=== PATIENT | female | born 1985 | race Caucasian/White ===

== ENCOUNTER 2020-01-19 00:44 | Outpatient (CLI) | payer OTHER, SELFPAY ==
[2020-01-19 16:40] LABS: SARS-CoV-2 RNA PCR Negative
== END 2020-01-19 00:45 | disposition home or self-care (01) ==
LOC: ANHCOVIDDT 00:44
PROVIDERS: PCP Internal Medicine; Visit Provider Obstetrics & Gynecology
DX: Z01.812 Encounter for preprocedural laboratory examination (principal); Z20.828 Contact with and (suspected) exposure to other viral communicable diseases
CPT/HCPCS: 87635; C9803; U0003

== ENCOUNTER 2020-01-21 02:06 | Day surgery (SDC) | payer OTHER, SELFPAY ==
[2020-01-13 10:26] VITALS: BMI 29.2
--- NOTE | 2020-01-21 08:20 | P.PNAN_ITS ---
Anes - Initial Pre Proc Eval Procedure: Operation Date: 01/21/20 11:30 Proposed Procedures p Hysteroscopy, Removal Of Foreign Body, Possible Insertion Intra Uterine Device - Chas Mike MD Date/Time: 01/21/20 08:20 Surgeon: Chas Mike MD Pre Op Diagnosis: Malposition of IUD Patient Data Age: 34 Gender: F Height: 5 ft Weight: 68.04 kg Allergies Allergy/AdvReac Type Severity Reaction Status Date / Time No Known Allergies Allergy Verified 01/21/20 10:01 Home Medications Medication Instructions Recorded Confirmed Type L.acid-L.casei-B.bif-B.bruce-FOS 1 cap PO DAILY 01/13/20 01/21/20 History [Probiotic Blend] krill ikd-tyifuvtukx-pgkplogfq 1 cap PO DAILY 01/13/20 01/21/20 History [MegaRed Joint Care] multivit del-bxgt-XP-herb 186 1 tablet PO DAILY 01/13/20 01/21/20 History [Hair, Skin and Nails Advanced] turmeric 1 cap PO DAILY 01/13/20 01/21/20 History Patient hx anesthesia problems: none Family hx anesthesia problems: none [facility], [facility] Past Medical History Medical History (Updated 01/21/20 @ 10:24 by Chas Mike MD) Anxiety GERD (gastroesophageal reflux disease) Migraine Social History Social History Smoking status: Former smoker Tobacco type: cigarettes Additional smoking assessment comments: SMOKING AT SOCIAL GATHERINGS ONLY- STATES SMOKED ONLY 2 YRS. QUIT 2 YEARS AG Alcohol intake: current Drinks per week: 6 Spiritual care concerns: No Anes - Eval Final PreProcedure Day of Procedure 01/21/20 08:20 Patient weight: normal Heart: regular rate and rhythm Lungs: clear to auscultation Airway: Mallampati scale class II Neurological: alert and oriented Last oral intake: >/= 8 hours ASA classification: II Emergent: no Anesthetic plan: proceed Anesthesia type and monitoring: general GIVS and standard monitoring Informed Consent: The patient's anesthetic plan and its attendant risks and benefits were discussed with the patient/family/POA. Questions were solicited and answers provided to the satisfaction of the patient/family/POA.
[2020-01-21 09:34] VITALS: BP 117/68; PULSE 71; RESP 12; TEMP 36.8; O2SAT 100
[2020-01-21] MEDS: ACETAMINOPHEN 500 MG TABLET 1000 MG PO (09:39)
[2020-01-21] MEDS: LACTATED RINGERS 1,000 ML 30 ML IV CONT (10:03)
--- NOTE | 2020-01-21 10:13 | SUR.PREOP ---
1010 pt updated on delay to or and states will update family.
--- NOTE | 2020-01-21 10:23 | PM.IMHP ---
H&P: HPI History of Present Illness Date/Time: 01/21/20 10:23 Chief complaint: Malposition of IUD Narrative: Elvia Ortiz is a 34 year old female Who has a malpositioned and imbedded IUD. A hysteroscopic removal was attempted in the office but it failed. We are going to attempt removal under sedation. She understands the risks. She understands that injuries may occur that result in hospitalization, more surgery, and severe illness. She understands risk of hemorrhage and infection. Review of Systems Constitutional: Constitutional: Reports no additional constitutional complaints, Denies fatigue, Denies headache(s), Denies lethargy and Denies weakness Eyes: Eyes: Reports no additional eye complaints, Denies blurry vision and Denies photophobia ENT: Reports as per HPI, Denies headache(s) and Denies neck pain Cardiovascular: Cardiovascular: Denies chest pain, Denies diaphoresis, Denies leg edema, Denies palpitations and Denies dyspnea Respiratory: Respiratory: Denies hemoptysis, Denies dyspnea and Denies wheezing Gastrointestinal: Gastrointestinal: Denies abdominal pain, Denies melena, Denies bloating, Denies hematochezia, Denies nausea and Denies vomiting Genitourinary: Genitourinary: Reports no additional female genitourinary complaints Musculoskeletal: Musculoskeletal: Denies joint swelling, Denies neck pain, Denies numbness and Denies stiffness Neurologic: Denies Abnormal speech present, Denies confusion, Denies headache(s), Denies numbness and Denies weakness Psychiatric: Psychiatric: Denies anxiety, Denies confusion, Denies depression, Denies homicidal ideation and Denies suicidal ideation Endocrine: Endocrine: Denies fatigue and Denies palpitations Allergic/Immunologic: Allergic/Immunologic: Denies wheezing [facility] Past Medical History Medical History (Updated 01/21/20 @ 10:24 by Chas Mike MD) Anxiety GERD (gastroesophageal reflux disease) Migraine Social History Social History Smoking status: Former smoker Tobacco type: cigarettes Additional smoking assessment comments: SMOKING AT SOCIAL GATHERINGS ONLY-STATES SMOKED ONLY 2 YRS. QUIT 2 YEARS AG Alcohol intake: current Drinks per week: 6 Spiritual care concerns: No Meds Home Medications and Allergies Home Medications Medication Instructions Recorded Confirmed Type L.acid-L.casei-B.bif-B.bruec-FOS 1 cap PO DAILY 01/13/20 01/21/20 History [Probiotic Blend] krill kla-nhxfkkqtim-yuehsjmzh 1 cap PO DAILY 01/13/20 01/21/20 History [MegaRed Joint Care] multivit ofl-pqkm-YA-herb 186 1 tablet PO DAILY 01/13/20 01/21/20 History [Hair, Skin and Nails Advanced] turmeric 1 cap PO DAILY 01/13/20 01/21/20 History Allergies Allergy/AdvReac Type Severity Reaction Status Date / Time No Known Allergies Allergy Verified 01/21/20 10:01 Vital Signs Vital Signs - 24 hr 01/21/20 09:34 Temperature 98.3 F Pulse Rate 71 Respiratory Rate 12 Blood Pressure 117/68 Pulse Oximetry 100 Exam Const: General: healthy appearing, comfortable and no acute distress; No confusion Orientation/consciousness: No confusion Eyes: Direct Ophthalmoscopy: No photophobia Resp: Auscultation: clear to auscultation bilaterally, no rales, no rhonchi and no wheezes Cardio: Rate: regular rate Heart sounds: no click, no murmurs and no rubs GI: Inspection: non-distended GI Palp: No abdominal tenderness Auscultation: normal bowel sounds Neuro: General: No confusion Speech: No Abnormal speech present Extrem: General: normal to inspection, no pedal edema and no calf tenderness Assessment and Plan Assessment and plan (1) Malpositioned IUD: Code(s): T83.32XA - Displacement of intrauterine contraceptive device, initial encounter Status: Acute Assessment and Plan: this patient is a 34-year-old with a malpositioned IUD. We are going to proceed with hysteroscopic removal of IUD and IUD insertion. She understands risk
--- NOTE | 2020-01-21 10:25 | WPDHPUPDATE1 ---
History and Physical Update Update Date/Time: 01/21/20 10:25 History and Physical has been reviewed, including an updated exam of the patient. There are NO changes in the patient's condition. Risks, benefits, and alternatives have been discussed and questions answered. Patient agrees to proceed with procedure.
--- NOTE | 2020-01-21 12:30 | SUR.OPER ---
hysteroscopy irrigation 550ml in and 500ml out iona iud expires 02/25 lot: [id number]
[2020-01-21 12:40] VITALS: BP 113/65; PULSE 94; RESP 10; O2SAT 100
--- NOTE | 2020-01-21 12:47 | PM.PROC ---
Procedure Note - Detailed Date of procedure: 01/21/20 Pre-op diagnosis: Malposition of IUD Abnormal uterine bleeding Post-op diagnosis: same Procedure performed: Hysteroscopy , IUD removal, IUD insertion Description of procedure: The patient was taken the operating room. She was prepped and draped in the dorsal lithotomy position after induction of mac anesthesia. A speculum was placed in the vagina. The cervix grasped with a tenaculum. The cervix was injected at 3 and 9:00 a.m. with 1% lidocaine. Cervix was dilated up to 1 cm. The hysteroscope was inserted the intrauterine cavity and the above findings were noted. Mirena IUD was then inserted. The applicator was placed into the cavity. The IUD was discharged.. Hysteroscope was reinserted the intrauterine cavity to re-examine the endometrial surfaces. The IUD appeared normally placed. The hysteroscope was withdrawn. The tenaculum was removed. The speculum was removed. The patient tolerated the procedure well. She was taken recovery room stable condition. Sponge lap needle counts were correct x2. Anesthesia: MAC Surgeon: Chas Mike MD Estimated blood loss (mL): 20 Drains: No Packing: No Pathology: yes Complications: No immediate complications Condition: stable Disposition: PACU Findings: There was some thickening of the endometrium. There was normal appearing vulva, vagina and cervix.
[2020-01-21 13:02] VITALS: O2SAT 100
[2020-01-21 13:30] VITALS: BP 108/73; PULSE 69; RESP 14
== END 2020-01-21 14:25 | disposition home or self-care (01) ==
PROVIDERS: PCP Internal Medicine; Visit Provider Obstetrics & Gynecology
PROC: 0U5B8ZZ Destruction of Endometrium, Via Natural or Artificial Opening Endoscopic (ICD-10-PCS; CPT 58563; principal; 2020-01-21 11:30)
DX: T83.32XA Displacement of intrauterine contraceptive device, initial encounter (principal); Y76.8 Miscellaneous obstetric and gynecological devices associated with adverse incidents, not elsewhere classified
CPT/HCPCS: 58562; 58300; 87635; A9270; C9803; J2250; J2405; J2704; J3010; J7030; J7120; U0003

== ENCOUNTER 2021-12-30 16:05 | Outpatient (CLI) | payer OTHER, SELFPAY ==
[2021-12-30 16:28] LABS: Basophils Absolute Auto 0.07 K/mm3 (0.00-0.10); Basophils Percent Auto 0.8 % (0.0-1.0); Eosinophils Absolute Auto 0.16 K/mm3 (0.02-0.50); Eosinophils Percent Auto 1.9 % (1.0-6.0); Hematocrit 37.9 % (35.0-49.0); Immature Granulocyte Absolute 0.03 K/mm3 (0.00-0.00); Immature Granulocyte Percent A 0.4 % (0.0-0.0); Lymphocytes Absolute Auto 2.73 K/mm3 (1.10-4.50); Lymphocytes Percent Auto 33.1 % (18.0-42.0); Mean Corpuscular HGB Conc 34.3 g/dL (32.0-36.0); Mean Corpuscular Hemoglobin 33.6 pg (27.0-31.0); Mean Corpuscular Volume 97.9 fL (78.0-102.0); Mean Platelet Volume 10.5 fl (9.2-11.8); Monocytes Absolute Auto 0.56 K/mm3 (0.10-0.90); Monocytes Percent Auto 6.8 % (2.0-11.0); Neutrophils Absolute Auto 4.7 K/mm3 (1.7-7.2); Platelet Count Result 329 K/mm3 (150-420); Red Blood Count 3.87 M/mm3 (4.20-5.40); Red Cell Distribution Width 11.7 % (11.6-14.4); White Blood Count 8.3 K/mm3 (4.8-10.8)
[2021-12-30 16:58] LABS: Alanine Aminotransferase 18 U/L (14-59); Anion Gap 8 mmol/L (8-16); Aspartate Amino Transferase 19 U/L (15-37); Bilirubin,Total 0.3 mg/dL (0.00-1.00); Blood Urea Nitrogen 23 mg/dL (7-18); Calcium 8.9 mg/dL (8.5-10.1); Carbon Dioxide 27 mmol/L (21-32); Chloride 101 mmol/L (98-108); Estimated Glomerular Filt Rate 58; Glucose 95 mg/dL (70-99); Osmolality Calculated 285 mOsm/kg (285-295); Potassium 3.8 mmol/L (3.5-5.1); Sodium 136 mmol/L (136-145); Total Protein 7.5 g/dL (6.4-8.2)
[2021-12-30 16:59] LABS: Albumin Level 4.1 g/dL (3.4-5.0); Alkaline Phosphatase 71 U/L (46-116); Free T3 2.38 pg/mL (2.18-3.98); Free T4 Free Thyroxine 0.99 ng/dL (0.76-1.46); Thyroid Stimulating Hormone 2.62 uIU/mL (0.36-3.74)
[2021-12-30 17:00] LABS: CRP < 0.2 mg/dL (0.0-0.9)
== END 2021-12-30 16:06 | disposition home or self-care (01) ==
PROVIDERS: PCP Internal Medicine; Visit Provider Internal Medicine
DX: E78.1 Pure hyperglyceridemia (principal); D75.89 Other specified diseases of blood and blood-forming organs; R53.83 Other fatigue
CPT/HCPCS: 36415; 80053; 84439; 84443; 84481; 85025; 86140

== ENCOUNTER 2022-11-21 16:38 | Outpatient (CLI) | payer OTHER, SELFPAY ==
[2022-11-21 18:06] LABS: Appearance Urine Clear (Clear); Basophils Absolute Auto 0.07 K/mm3 (0.00-0.10); Basophils Percent Auto 0.7 % (0.0-1.0); Bilirubin Urine Negative (Negative); Blood Urine Trace-Intact (Negative); Color Urine Light Yellow (Yellow); Eosinophils Absolute Auto 0.16 K/mm3 (0.02-0.50); Eosinophils Percent Auto 1.6 % (1.0-6.0); Glucose Urine UA Negative (Negative); Hematocrit 39.1 % (35.0-49.0); Hemoglobin 13.6 g/dL (12.0-15.0); Immature Granulocyte Absolute 0.06 K/mm3 (0.00-0.00); Immature Granulocyte Percent A 0.6 % (0.0-0.0); Ketones Urine Negative (Negative); Leukocyte Esterase Ur Negative (Negative); Lymphocytes Absolute Auto 2.55 K/mm3 (1.10-4.50); Lymphocytes Percent Auto 26.2 % (18.0-42.0); Mean Corpuscular HGB Conc 34.8 g/dL (32.0-36.0); Mean Corpuscular Hemoglobin 33.3 pg (27.0-31.0); Mean Corpuscular Volume 95.8 fL (78.0-102.0); Mean Platelet Volume 10.5 fl (9.2-11.8); Monocytes Absolute Auto 0.76 K/mm3 (0.10-0.90); Monocytes Percent Auto 7.8 % (2.0-11.0); Neutrophils Absolute Auto 6.1 K/mm3 (1.7-7.2); Neutrophils Percent Auto 63.1 % (50.0-70.0); Nitrate Urine Negative (Negative); Platelet Count Result 329 K/mm3 (150-420); Protein Urine Negative (Negative); Red Blood Count 4.08 M/mm3 (4.20-5.40); Red Cell Distribution Width 11.6 % (11.6-14.4); Urobilinogen Urine 0.2 mg/dL (0.2-1.0); White Blood Count 9.7 K/mm3 (4.8-10.8)
[2022-11-21 18:39] LABS: Alanine Aminotransferase 20 U/L (14-59); Albumin Level 3.7 g/dL (3.4-5.0); Alkaline Phosphatase 77 U/L (46-116); Anion Gap 8 mmol/L (8-16); Aspartate Amino Transferase 19 U/L (15-37); Bilirubin,Total 0.2 mg/dL (0.00-1.00); Blood Urea Nitrogen 16 mg/dL (7-18); Calcium 8.8 mg/dL (8.5-10.1); Carbon Dioxide 28 mmol/L (21-32); Chloride 103 mmol/L (98-108); Estimated Glomerular Filt Rate > 60; Free T3 2.84 pg/mL (2.18-3.98); Free T4 Free Thyroxine 0.91 ng/dL (0.76-1.46); Glucose 89 mg/dL (70-99); Osmolality Calculated 288 mOsm/kg (285-295); Potassium 4.2 mmol/L (3.5-5.1); Sodium 139 mmol/L (136-145); Thyroid Stimulating Hormone 2.05 uIU/mL (0.36-3.74); Total Protein 6.8 g/dL (6.4-8.2)
[2022-11-21 18:54] LABS: CRP < 0.5 mg/dL (0.0-0.9)
[2022-11-21 18:55] LABS: Add Urine Microscopic? YES; Bacteria Urine 1+ /hpf; RBC Urine 0-2 /hpf (0-2); Squamous Epithelial Cell Urine Rare /hpf (Few); WBC Urine 0-3 /hpf (0-3)
== END 2022-11-21 16:39 | disposition home or self-care (01) ==
LOC: CHSLAB 16:40
PROVIDERS: PCP Internal Medicine; Visit Provider Internal Medicine
DX: R53.1 Weakness (principal); R00.0 Tachycardia, unspecified; R51.9 Headache, unspecified
CPT/HCPCS: 36415; 80053; 81001; 84439; 84443; 84481; 85025; 86140

== ENCOUNTER 2025-04-01 06:37 | Outpatient (CLI) | payer OTHER, SELFPAY ==
--- NOTE | ~2025-04-01 | MR_ITS ---
EXAMINATION: MR wrist RT wo/w con DATE: 04/01/2025 07:39 INDICATION: Right wrist ganglion versus tendinitis. TECHNIQUE: Magnetic resonance imaging (MRI) of the right wrist was performed without and with 15 mL Multihance intravenous contrast. Sequences performed include axial PD-weighted FSE, T1-weighted FS FSE and PD-weighted FS FSE, coronal PD-weighted FS FSE and T1-weighted SE, sagittal PD-weighted FS FSE and PD-weighted FSE and postcontrast axial, sagittal and coronal T1-weighted FS FSE . COMPARISON: None FINDINGS: Intrinsic ligaments: The lunotriquetral ligament is normal. There may be a tiny perforation of the central membranous component of the scapholunate ligament. The physiologically significant dorsal and volar components of the ligament are normal. Triangular fibrocartilage complex (TFCC): There is a tear of the radial side of the central fibrocartilaginous disc of the triangular fibrocartilage complex. The foveal and styloid attachments as well as the dorsal and volar radioulnar ligaments are normal. The ulnar collateral ligament, ulnotriquetral ligament and meniscal homologue are normal. The extensor carpi ulnaris tendon sheath is normal. Extensor wrist: Extensor tendons of the wrist are normal. No tenosynovitis. Flexor wrist: The flexor tendons of the wrist are normal. No abnormality in the carpal tunnel with normal median nerve. Guyon's canal: Guyon's canal including the ulnar nerve and artery are normal. Bones/other: Normal marrow signal. No fracture, erosions, avascular necrosis or abnormal marrow replacing process. There is minimal subarticular edema-like signal change along the volar/ulnar aspect of the proximal articular surface of the lunate likely related to underlying chondromalacia. Minimal peripheral synovial enhancement along a 9 x 7 x 3 mm fluid signal intensity ganglion cyst positioned dorsal to the junction of the midcarpal and scapholunate joints and immediately deep to the marker indicating the lesion of concern. IMPRESSION: 1. Lesions corresponds to a 9 x 7 x 3 mm ganglion cyst dorsal aspect of the carpus. 2. 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 Reviewed, dictated and finalized at location A. TESTER IMPRESSION: 1. Lesions corresponds to a 9 x 7 x 3 mm ganglion cyst dorsal aspect of the car pus. 2. Partial tear of the radial side of the central fiber cartilaginous disc of t he triangular fibrocartilage complex with small region likely chondromalacia al anna marie the adjacent volar/ulnar side of the proximal articular surface of the jose miguel te.
--- OUTSIDE RECORDS SUMMARY | 2025-04-01 06:41 | XMS_ITS | Data Portability ---
Author Organization [facility] Address [address] [place] [address] Care Team Providers Care Driller Machine Name Role Phone LANE RUELAS Primary Care Provider Assessment Encounter Date Assessment Date Assessment LastModified by Organization Details LastModified Time 2021 2021 Annual gynecological exam performed. Patient will come back in a year unless there are new symptoms. Not available 2021 09:35:17 01/04/2023 01/04/2023 Annual gynecological exam performed. Patient will come back in a year unless there are new symptoms. Not available 01/04/2023 15:52:15 03/24/2024 03/24/2024 Annual gynecological exam performed. Patient will come back in a year unless there are new symptoms. [email or web address] Not available 03/24/2024 09:28:09 Plan of Treatment Reminders Order Date Submit Date Provider Last Modified By Organization Details Last Modified Time Details Appointments None recorded. Lab hsv-2 igg Ab, serum 2021 [facility] (Lab), [address], [place], [address], 20:35:45 hbcab (hepatitis B core Ab) igm, serum 2021 022 [facility] (Lab), [address], [place], [address], 20:35:46 HBsAg (hepatitis B surface Ag), serum 2021 [facility] (Lab), [address], [place], [address], 20:35:43 hepatitis C virus Ab, serum 2021 [facility] (Lab), [address], [place], [address], 20:35:43 unlisted lab - HIV 1/2 antigen/ant ibody, reflex confirmatio n 2021 [facility] (Lab), [address], [place], [address], 20:35:46 RPR (rapid plasma reagin), serum 2021 [facility] (Lab), [address], [place], [address], 20:35:46 CBC w/ auto diff 2021 [facility] (Lab), [address], [place], [address], 20:35:45 TSH, serum or plasma 2021 [facility] (Lab), [address], [place], [address], 20:35:44 lipid panel, blood 2021 [facility] (Lab), [address], [place], [address], 20:35:44 CMP, serum or plasma 2021 [facility] (Lab), [address], [place], [address], 04/19/202 2 20:35:44 Referral None recorded. Procedures None recorded. Surgeries None recorded. Imaging None recorded. Medication Orders doxycycline hyclate 100 mg tablet 2023 024 [facility] #[id number], [address], [place], [id number], 4 11:06:12 clindamycin 1 % lotion 2023 024 [facility] #[id number], [address], [place], [id number], 4 11:07:03 nystatin-tr iamcinolone 100,000 unit/gram-0 .1 % topical ointment [email or web address] [facility] #[id number], [address], [place], [id number], 4 09:30:57 Premarin 0.625 mg/gram vaginal cream [facility] [facility] #[id number], [address], [place], [id number], 3 15:53:07 clindamycin 1 % lotion [address] [facility] #19392, [address], [place], [id number], 2 09:49:21 Bactrim DS 800 mg-160 mg tablet [address] [facility] #84314, [address], [place], [id number], 3 15:53:23 Patient TargetsNo targets recorded. Patient Instructions Encounter Date Encounter Id Patient Instructions Last Modified By Organization Details Last Modified Time 08/22/2021 [id number] vitamin D dionte Not available 08/22 11:36:24 Reason for Referral None Reported. Results Created Date Observation Date Name Description Value Unit Range Abnormal Flag Note LastModifiedBy Organization Detail LastModifiedTime 08/23/19 22 08/22/2021 HEPAT ITIS B SURFA CE ANTIG EN hepatitis B surface antigen Non-re active non-re active This assay was perfo rmed using [employer] ratio n reage nts and test kits. Value s obtai tiffany with other assay metho ds or kits canno t be used inter [facility] . Not Available [facility] (Lab) [address], [place], [address], 08/23/2021 20:35:43 08/23/19 22 08/22/2021 HEPAT ITIS C ANTIB GRISELDA SCREE N, REFLE X TO CONFI RMATI ON hepatitis C antibody Non-re active non-re active This assay was perfo rmed using [employer] reage nts and test kits. Value s obtai tiffany with other assay metho ds or kits canno t be used inter [facility] . Not Available [facility] (Lab) [address], [place], [address], 08/23/2021 20:35:43 08/23/19 22 08/22/2021 CMP WITH BUN/C REAT RATIO sodium 142 mmol/ L 133-14 6 Not Available [facility] (Lab) [address] [place], [address], 08/23/2021 20:35:44 08/23/19 22 08/22/2021 CMP WITH BUN/C REAT RATIO potassium 4.6 mmol/ L 3.5-5. 1 Not Available [facility] (Lab) [address] [place], [address], 08/23/2021 20:35:44 08/23/19 22 08/22/2021 CMP WITH BUN/C REAT RATIO chloride 103 mmol/ L 98-107 Not Available [facility] (Lab) [address] [place], [address], 08/23/2021 20:35:44 08/23/19 22 08/22/2021 CMP WITH BUN/C REAT RATIO carbon dioxide 28 mmol/ L 21-31 Not Available [facility] (Lab) [address] , [place], [address], 08/23/2021 20:35:44 08/23/19 22 08/22/2021 CMP WITH BUN/C REAT RATIO anion gap 11 mmol/ L 4-13 Not Available [facility] (Lab) [address], [place], [address], 08/23/2021 20:35:44 08/23/19 22 08/22/2021 CMP WITH BUN/C REAT RATIO blood urea nitrogen 11 mg/dL 7-25 Not Available [facility] (Lab) [address], [place], [address], 08/23/2021 20:35:44 08/23/19 22 08/22/2021 CMP WITH BUN/C REAT RATIO creatinine 0.92 mg/dL 0.60-1 .30 Not Available [facility] (Lab) [address], [place], [address], 08/23/2021 20:35:44 08/23/19 22 08/22/2021 CMP WITH BUN/C REAT RATIO egfrcr (CKD-epi 2020) 84 mL/mi n/1.7 3_m2 >=60 Not Available [facility] (Lab) [address], [place], [address], 08/23/2021 20:35:44 08/23/19 22 08/22/2021 CMP WITH BUN/C REAT RATIO BUN/creatini ne ratio 12.0 . 10.0-2 2.0 Not Available [facility] (Lab) [address], [place], [address], 08/23/2021 20:35:44 08/23/19 22 08/22/2021 CMP WITH BUN/C REAT RATIO calcium 9.7 mg/dL 8.3-10 .5 Not Available [facility] (Lab) [address], [place], [address], 08/23/2021 20:35:44 08/23/19 22 08/22/2021 CMP WITH BUN/C REAT RATIO glucose 99 mg/dL 70-100 Not Available [facility] (Lab) [address], [place], [address], 08/23/2021 20:35:44 08/23/19 22 08/22/2021 CMP WITH BUN/C REAT RATIO protein, total 7.3 g/dL 6.4-8. 3 Not Available [facility] (Lab) [address], [place], [address], 08/23/2021 20:35:44 08/23/19 22 08/22/2021 CMP WITH BUN/C REAT RATIO albumin 4.5 g/dL 3.5-5. 0 Not Available [facility] (Lab) [address], [place], [address], 08/23/2021 20:35:44 08/23/19 22 08/22/2021 CMP WITH BUN/C REAT RATIO ALT 19 units /L 9-43 Not Available [facility] (Lab) [address], [place], [address], 08/23/2021 20:35:44 08/23/19 22 08/22/2021 CMP WITH BUN/C REAT RATIO alkaline phosphatase 62 units /L 34-104 Not Available [facility] (Lab) [address], [place], [address], 08/23/2021 20:35:44 08/23/19 22 08/22/2021 CMP WITH BUN/C REAT RATIO AST 28 units /L 13-39 Not Available [facility] (Lab) [address] [place], [address], 08/23/2021 20:35:44 08/23/19 22 08/22/2021 CMP WITH BUN/C REAT RATIO bilirubin, total 0.4 mg/dL 0.2-1. 2 Not Available [facility] (Lab) [address] [place], [address], 08/23/2021 20:35:44 08/23/19 22 08/22/2021 LIPID PANEL ,AMA (LDL- CALC) total cholesterol 178 mg/dL 0-199 Not Available [facility] (Lab) [address] [place], [address], 08/23/2021 20:35:44 08/23/19 22 08/22/2021 LIPID PANEL ,AMA (LDL- CALC) triglyceride s 240 mg/dL 0.00-1 50.00 high NCEP Refer ence Value s for Trigl yceri rachna: Vianney l: <150 mg/dL Borde rline High: 150 - 199 mg/dL High: 200 - 499 mg/dL Very High: >/= 500 mg/dL Not Available [facility] (Lab) [address], [place], [address], 08/23/2021 20:35:44 08/23/19 22 08/22/2021 LIPID PANEL ,AMA (LDL- CALC) HDL cholesterol 41 mg/dL >40 Not Available [facility] (Lab) [address] [place], [address], 08/23/2021 20:35:44 08/23/19 22 08/22/2021 LIPID PANEL ,AMA (LDL- CALC) LDL cholesterol 89 mg/dL 0-99 Cutof f value s recom yadira d by the Natio nal Emily stero l [employer]ca tion Progr am: VICKI ABLE: Emily stero l <200 mg/dL LDL <100 mg/dL BORDE RLINE : Emily stero l 200-2 39 mg/dL LDL 101-1 59 mg/dL HIGHE R RISK: Emily stero l >240 mg/dL LDL >160 mg/dL , HDL <40 mg/dL Not Available [facility] (Lab) [address] [place], [address], 08/23/2021 20:35:44 08/23/19 22 08/22/2021 LIPID PANEL ,AMA (LDL- CALC) non-HDL cholesterol 137 mg/dL no refere nce range A reaso nable goal for non-H DL emily stero l is one that is 30 mg/dL highe r than the LDL emily stero l goal. Not Available [facility] (Lab) [address], [place], [address], 08/23/2021 20:35:44 08/23/19 22 08/22/2021 LIPID PANEL ,AMA (LDL- CALC) chol/HDL ratio 4.3 . 0.0-5. 0 Not Available [facility] (Lab) [address], [place], [address], 08/23/2021 20:35:44 08/23/19 22 08/22/2021 TSH TSH 2.23 uIU/m L 0.30-5 .33 Not Available [facility] (Lab) [address], [place], [address], 08/23/2021 20:35:44 08/23/19 22 08/22/2021 CBC W/DIF F WBC 5.8 10'3/ uL 3.6-10 .2 Not Available [facility] (Lab) [address], [place], [address], 08/23/2021 20:35:45 08/23/19 22 08/22/2021 CBC W/DIF F RBC 4.30 10'6/ uL (based on docume nted legal sex) 4.10-5 .30 Not Available [facility] (Lab) [address], [place], [address], 08/23/2021 20:35:45 08/23/19 22 08/22/2021 CBC W/DIF F HGB 14.0 g/dL (based on docume nted legal sex) 11.9-1 5.8 Not Available [facility] (Lab) [address], [place], [address], 08/23/2021 20:35:45 08/23/19 22 08/22/2021 CBC W/DIF F HCT 43.1 % (based on docume nted legal sex) 37.4-4 8.3 Not Available [facility] (Lab) [address], [place], [address], 08/23/2021 20:35:45 08/23/19 22 08/22/2021 CBC W/DIF F MCV 100.0 fL 82.0-9 9.0 high Not Available [facility] (Lab) [address], [place], [address], 08/23/2021 20:35:45 08/23/19 22 08/22/2021 CBC W/DIF F MCH 32.0 pg 27.0-3 3.0 Not Available [facility] (Lab) [address], [place], [address], 08/23/2021 20:35:45 08/23/19 22 08/22/2021 CBC W/DIF F MCHC 33.0 g/dL 32.0-3 6.0 Not Available [facility] (Lab) [address], [place], [address], 08/23/2021 20:35:45 08/23/19 22 08/22/2021 CBC W/DIF F RDW 12.0 % 11.0-1 5.0 Not Available [facility] (Lab) [address], [place], [address], 08/23/2021 20:35:45 08/23/19 22 08/22/2021 CBC W/DIF F plt 360 10'3/ uL 150-45 0 Not Available [facility] (Lab) [address], [place], [address], 08/23/2021 20:35:45 08/23/19 22 08/22/2021 CBC W/DIF F MPV 11.2 fL 9.8-12 .7 Not Available [facility] (Lab) [address], [place], [address], 08/23/2021 20:35:45 08/23/19 22 08/22/2021 CBC W/DIF F NRBC's 0.00 % 0 Not Available [facility] (Lab) [address], [place], [address], 08/23/2021 20:35:45 08/23/19 22 08/22/2021 CBC W/DIF F absolute NRBCs 0.0 10'3/ uL 0 Not Available [facility] (Lab) [address], [place], [address], 08/23/2021 20:35:45 08/23/19 22 08/22/2021 CBC W/DIF F neutrophils 53.0 % 37.0-7 2.0 Not Available [facility] (Lab) [address], [place], [address], 08/23/2021 20:35:45 08/23/19 22 08/22/2021 CBC W/DIF F lymphocytes 36.0 % 16.0-4 8.0 Not Available [facility] (Lab) [address], [place], [address], 08/23/2021 20:35:45 08/23/19 22 08/22/2021 CBC W/DIF F monocytes 7.0 % 4.0-14 .0 Not Available [facility] (Lab) [address], [place], [address], 08/23/2021 20:35:45 08/23/19 22 08/22/2021 CBC W/DIF F eosinophils 3.0 % 0.0-9. 0 Not Available [facility] (Lab) [address], [place], [address], 08/23/2021 20:35:45 04/18/20 22 08/22/2021 CBC W/DIF F basophils 1.0 % 0.0-2. 0 Not Available [facility] (Lab) [address], [place], [address], 08/23/2021 20:35:45 08/23/19 22 08/22/2021 CBC W/DIF F immature granulocytes 0.0 % no define d refere nce range Not Available [facility] (Lab) [address], [place], [address], 08/23/2021 20:35:45 08/23/19 22 08/22/2021 CBC W/DIF F absolute neutrophils 3.0 10'3/ uL 1.1-6. 0 Not Available [facility] (Lab) [address], [place], [address], 08/23/2021 20:35:45 08/23/19 22 08/22/2021 CBC W/DIF F absolute lymphocytes 2.1 10'3/ uL 0.7-3. 4 Not Available [facility] (Lab) [address], [place], [address], 08/23/2021 20:35:45 08/23/19 22 08/22/2021 CBC W/DIF F absolute monocytes 0.4 10'3/ uL 0.3-1. 0 Not Available [facility] (Lab) [address], [place], [address], 08/23/2021 20:35:45 08/23/19 22 08/22/2021 CBC W/DIF F absolute eosinophils 0.2 10'3/ uL 0.0-0. 6 Not Available [facility] (Lab) [address] [place], [address], 08/23/2021 20:35:45 08/23/19 22 08/22/2021 CBC W/DIF F absolute basophils 0.1 10'3/ uL 0.0-0. 1 Not Available [facility] (Lab) [address], [place], [address], 08/23/2021 20:35:45 08/23/19 22 08/22/2021 CBC W/DIF F absolute immature granulocytes 0.00 10'3/ uL 0.00-0 .10 2021 4:47 AM: P indic ates parti al resul ts on a panel have been relea sed. Addit ional resul ts will follo w. 2021 4:47 AM: This resul t has been final verif ied. No addit ional or rosenberg ed resul ts are expec don. Not Available [facility] (Lab) [address], [place], [address], 08/23/2021 20:35:45 08/23/19 22 08/22/2021 HERPE S SIMPL EX VIRUS TYPE 2 SPECI FIC AB, IGG herpes simplex virus 2 IgG Negati ve negati ve Not Available [facility] (Lab) [address], [place], [address], 08/23/2021 20:35:45 08/23/19 22 08/22/2021 HERPE S SIMPL EX VIRUS TYPE 2 SPECI FIC AB, IGG herpes simples virus 2 IgG, quant <0.2 ai 0.0-0. 8 Not Available [facility] (Lab) [address], [place], [address], 08/23/2021 20:35:45 08/23/19 22 08/22/2021 HIV 1/2 ANTIG EN/AN TIBOD Y, REFLE X CONFI RMATI ON HIV Ag-Ab total quant 0.18 idx <1.00 Not Available [facility] (Lab) [address], [place], [address], 08/23/2021 20:35:46 08/23/19 22 08/22/2021 HIV 1/2 ANTIG EN/AN TIBOD Y, REFLE X CONFI RMATI ON HIV Ag-Ab total Non-re active non-re active Not Available [facility] (Lab) [address], [place], [address], 08/23/2021 20:35:46 08/23/19 22 08/22/2021 HIV 1/2 ANTIG EN/AN TIBOD Y, REFLE X CONFI RMATI ON HIV-1 antibody quant 0.09 idx <1.00 Not Available [facility] (Lab) [address], [place], [address], 08/23/2021 20:35:46 08/23/19 22 08/22/2021 HIV 1/2 ANTIG EN/AN TIBOD Y, REFLE X CONFI RMATI ON HIV-1 antibody Non-re active non-re active Not Available [facility] (Lab) [address], [place], [address], 08/23/2021 20:35:46 08/23/19 22 08/22/2021 HIV 1/2 ANTIG EN/AN TIBOD Y, REFLE X CONFI RMATI ON HIV-1 antigen (P24) quant 0.18 idx <1.00 Not Available [facility] (Lab) [address] [place], [address], 08/23/2021 20:35:46 08/23/19 22 08/22/2021 HIV 1/2 ANTIG EN/AN TIBOD Y, REFLE X CONFI RMATI ON HIV-1 antigen (P24) Non-re active non-re active Not Available [facility] (Lab) [address] [place], [address], 08/23/2021 20:35:46 08/23/19 22 08/22/2021 HIV 1/2 ANTIG EN/AN TIBOD Y, REFLE X CONFI RMATI ON HIV-2 antibody quant 0.06 idx <1.00 Not Available [facility] (Lab) [address] [place], [address], 08/23/2021 20:35:46 08/23/19 22 08/22/2021 HIV 1/2 ANTIG EN/AN TIBOD Y, REFLE X CONFI RMATI ON HIV-2 antibody Non-re active non-re active HIV testi ng is perfo rmed using Multi plex- Bead Immun oassa y techn ology . The final overa ll HIV Ag-Ab resul t is deter mined based on the final resul t for each indiv idual chiquis te. If any of the chiquis jimena has 2 or more repli cates that are REACT LYNNE, the final overa ll HIV Ag-Ab resul t is also React lynne. A Non-R eacti ve test resul t at any point in the inves tigat ion of indiv idual subje cts does not precl ude the possi bilit y of expos ure to or infec tion with HIV-1 and/o r HIV-2 . Non-R eacti ve resul ts can occur if the quant ity of marke r prese nt in the sampl e is below the detec tion limit s of the assay . React lynne speci mens must be inves tigat ed by addit ional , more speci fic suppl ement al tests . Speci men confi rmati on will be perfo rmed by the Webbyn[employer]i us HIV 1/2 Suppl ement al Assay . The perfo rmanc e of this assay has not been estab lishe d for neona jimena and the assay shoul d not be used in indiv idual s young er than 2 years of age. Not Available [facility] (Lab) [address], [place], [address], 08/23/2021 20:35:46 08/23/19 22 08/22/2021 RPR SCREE N/REF BRANDON TITER /FTA RPR screen Nonrea ctive nonrea ctive Not Available [facility] (Lab) [address], [place], [address], 08/23/2021 20:35:46 08/23/19 22 08/22/2021 HEPAT ITIS B CORE, IGM hepatitis B core IgM antibody Negati ve negati ve Not Available [facility] (Lab) [address], [place], [address], 08/23/2021 20:35:46 10/27/19 22 2021 IMAGE GUIDE D PAP AND HPV REGAR DLESS image guided Pap, HPV regardless of Pap result SEE RESULT S BELOW CASE REPOR T: Cytol ogy Gynec ologi nevaeh Repor t Case: [id number] Autho felix zacarias Provi nohelia: Da kohler , Oscar Marrero cted: 10/26 1629 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 Elect daniel alvarez aziza d by Noelle Rodriguez ret, CT on 2021 at 12:07 PM ----- ----- ----- ----- ----- ----- ----- ----- ----- ----- ----- ----- ----- ----- ----- ----- ----- ---- HPV RESUL TS: HPV mRNA E6/E7 : No HPV mRNA Detec don NOTE: This high risk HPV mRNA assay detec ts fourt een high- risk HPV types (16, 18, 31, 33, 35, 39, 45, 51, 52, 56, 58, 59, 66, 68) witho ut diffe renti ation . COMME NT: Note: This speci men was revie wed by a Cytot echno logis t and/o r Patho logis t (as indic ated in this repor t) after evalu ation using the Thinp rep Imagi ng Syste m. CLINI NEVAEH INFOR MATIO N: Menst rual Statu s: LMP (if appli cable ): Clini nevaeh Histo ry/Pr eviou s Pap: Type of Neopl tomas (if appli cable ): Signi fican t Clini nevaeh Findi ngs: Other Histo ry: Hormo henri (if appli cable ): PAP EDUCA IVAN L NOTE: The Pap Test is a scree miguel test with an inher ent false negat lynne rate. Liqui d-bas ed sampl ing may decre ase, but will not elimi anais, false negat lynne resul ts. A negat lynne resul t does not precl ude the prese nce and/o r devel opmen t of disea se, since the prese nce of abnor mal cells in the sampl e depen ds on the locat ion of the lesio n and sampl ing techn ique. Jose nued regul ar scree miguel is the best metho d of cance r preve ntion . If repor don cytol ogic findi ng do not corre late with physi nevaeh and/o r histo rical findi ngs, furth er inves tigat ion is recom yadira d, as clini wilber warrjeremiah nted. 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 Elect daniel antonio aziza d by Leonel Lozano, CT on 023 at 2:48 PM ----- ----- ----- ----- ----- ----- ----- ----- ----- ----- ----- ----- ----- ----- ----- ----- ----- ---- HPV RESUL TS: HPV mRNA E6/E7 : No HPV mRNA Detec don NOTE: This high risk HPV mRNA assay detec ts fourt een high- risk HPV types (16, 18, 31, 33, 35, 39, 45, 51, 52, 56, 58, 59, 66, 68) witho ut diffe renti ation . COMME NT: This speci men was revie wed by a Cytot echno logis t and/o r Patho logis t (as indic ated in this repor t) after evalu ation using the Thinp rep Imagi ng Syste m. CLINI NEVAEH INFOR MATIO N: Menst rual Statu s: LMP (if appli cable ): Clini nevaeh Histo ry/Pr eviou s Pap: Type of Neopl tomas (if appli cable ): Signi fican t Clini nevaeh Findi ngs: Other Histo ry: Hormo henri (if appli cable ): PAP EDUCA IVAN L NOTE: The Pap Test is a scree miguel test with an inher ent false negat lynne rate. Liqui d-bas ed sampl ing may decre ase, but will not elimi anais, false negat lynne resul ts. A negat lynne resul t does not precl ude the prese nce and/o r devel opmen t of disea se, since the prese nce of abnor mal cells in the sampl e depen ds on the locat ion of the lesio n and sampl ing techn ique. Jose nued regul ar scree miguel is the best metho d of cance r preve ntion . If repor don cytol ogic findi ng do not corre late with physi nevaeh and/o r histo rical findi ngs, furth er inves tigat ion is recom yadira d, as clini wilber mota nted. Not Available [facility] (Lab) [address], [place], [address], 01/09/2023 15:51:32 03/24/20 24 03/24/2024 IMAGE GUIDE D PAP AND HPV REGAR DLESS image guided Pap, HPV regardless of Pap result SEE RESULT S BELOW CASE REPOR T: Cytol ogy Gynec ologi nevaeh Repor t Case: [id number] Autho felix zacarias Provi nohelia: Geno Cannon, LUIS ALFREDO Colle cted: 03/24 1531 Order ing Locat ion: [place] Patho [place] Recei citlaly: 03/25 0923 First Lilia n: Leonel Lozano, CT Rescr een: Mariaa Valente , CT Speci men: Lilia rivera Pap - Image d, Cervi x STATE MENT OF ADEQU ACY: Satis facto ry for evalu ation Trans forma tion zone compo nent prese nt ----- ----- ----- ----- ----- ----- ----- ----- ----- ----- ----- ----- ----- ----- ----- ----- ----- ---- FINAL DIAGN OSIS: Negat lynne for Intra epith elial Jovan ervin or Obi story (NIL) . Funga l organ isms morph ologi wilber consi stent with Frida da spp. Elect daniel ervin d by Mariaa Valente , CT on 04/02 at 12:00 PM ----- ----- ----- ----- ----- ----- ----- ----- ----- ----- ----- ----- ----- ----- ----- ----- ----- ---- HPV RESUL TS: HPV mRNA E6/E7 : No HPV mRNA Detec don NOTE: This high risk HPV mRNA assay detec ts fourt een high- risk HPV types (16, 18, 31, 33, 35, 39, 45, 51, 52, 56, 58, 59, 66, 68) witho ut diffe renti ation . COMME NT: This speci men was revie wed by a Cytot echno logis t and/o r Patho logis t (as indic ated in this repor t) after evalu ation using the Thinp rep Imagi ng Syste m. CLINI NEVAEH INFOR MATIO N: Menst rual Statu s: LMP (if appli cable ): Clini nevaeh Histo ry/Pr eviou s Pap: Type of Neopl tomas (if appli cable ): Signi fican t Clini nevaeh Findi ngs: Other Histo ry: Hormo henri (if appli cable ): PAP EDUCA IVAN L NOTE: The Pap Test is a scree miguel test with an inher ent false negat lynne rate. Liqui d-bas ed sampl ing may decre ase, but will not elimi anais, false negat lynne resul ts. A negat lynne resul t does not precl ude the prese nce and/o r devel opmen t of disea se, since the prese nce of abnor mal cells in the sampl e depen ds on the locat ion of the lesio n and sampl ing techn ique. Jose nued regul ar scree miguel is the best metho d of cance r preve ntion . If repor don cytol ogic findi ng do not corre late with physi nevaeh and/o r histo rical findi ngs, furth er inves tigat ion is recom yadira d, as clini wilber mota nted. Not Available [facility] (Lab) [address], [place], [address], 04/02/2024 13:05:27 Result Notes None recorded. 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 16:14:27 Adult health examinat ion Completed 201409/23/2020 Routine general medical examinat ion at a [facility] facility ;Practic e ID: 0001 Asya [facility] 16:14:31 Insertio n of intraute rine contrace ptive device Completed 201409/23/2020 Encounte r for insertio n of intraute rine contrace ptive device;P ractice ID: 0001 [facility] 16:14:51 Contrace ptive sheath status [id number] Completed 201409/23/2020 Encounte r for routine checking of intraute rine contrace p dev;Prac arun ID: 0001 [facility] 16:14:42 Clinical finding Completed 201809/23/2020 Abnormal findings on dx imaging of oth body structur es;Pract ice ID: 0001 [facility] 16:14:40 Lesion of ovary Completed 201809/23/2020 Other ovarian cyst, left side;Pra ctice ID: 0001 [facility] 16:14:45 Palpitat ions 58085040 Active 2023 Jany Valladares [facility], [facility] 4 09:31:26 Asthma 890528913 Active 2023 Jany [facility] 4 09:31:37 Anxiety 37123176 Active 2023 Jany montenegro [facility] 09:31:48 Notes:history abnormal pap Problem Notes None recorded. Procedures Surgical History Date Name Laterality Status Provider Name and Address Organization Details Recorded Time 03/24/20 24 Date of Last Pap Smear completed Jany Valladares [facility] 03/24/2024 16:07:42 11/06/19 21 Colposcopy completed Bernice Barr CNM [address], [place], [address], [facility] 11/10/2020 09:04:38 11/06/19 21 Colposcopy completed Jany Valladares [facility] 10/19/2024 13:05:48 01/21/20 20 HYSTEROSCOPY, REMOVAL OF FOREIGN BODY (SURG) completed Talon Andrews [facility] 10/07/2020 14:09:32 01/06/20 20 Hysteroscopy completed Bernice Barr CNM [address], [place], [address], [facility] 01/06/2020 10:02:37 01/06/20 20 Hysteroscopy completed Jany Valladares [facility] 11/05/2020 16:19:11 05/07/19 20 procedure on elbow completed Jany Valladares [facility] 10/19/2024 13:04:46 05/07/19 18 Colposcopy completed Jany Valladares [facility] 11/05/2020 16:17:51 06/07/19 17 LEEP completed Jany Valladares [facility] 01/06/2020 08:49:41 05/07/19 17 Colposcopy completed Jany Valladares [facility] 11/05/2020 16:17:44 05/04/20 16 Colposcopy completed Janyli Valladares [facility] 01/06/2020 08:48:04 05/04/20 16 Colposcopy completed Asya Luther [facility] 10/25/2021 17:20:40 05/07/19 15 [facility] 01/[facility]2020 08:50:17 05/07/19 14 [facility] 10/19/2024 13:05:19 05/07/19 06 Colposcopy completed [facility] 11/05/2020 16:17:59 05/07/19 06 LEEP completed [facility] 11/05/2020 16:18:08 Imaging Results None recorded. Procedure Notes None recorded. Medical Equipment None Reported. Allergies No known drug allergies Medications Name Sig Start Date Stop Date Status Note LastModified by Organization Details LastModified Time glycopyrr olate 1 mg tablet TAKE 1 TO 2 TABLETS BY MOUTH TWICE DAILY NEEDED 03/24 completed Not Available Not Available Not Available buspirone 5 mg tablet TAKE 1/2 TO 2 TABLETS BY MOUTH TWICE DAILY NEEDED active Not Available Not Available No t Available azithromy belle 250 mg tablet 10/26 completed Not Available Not Available Not Available ibuprofen 800 mg tablet TAKE 1 TABLET BY MOUTH 2 HOURS BEFORE PROCEDUR E active Not Available Not Available No t Available hydrocodo ne 5 mg-acetam inophen 325 mg tablet TAKE 1 TABLET BY MOUTH 2 HOURS BEFORE PROCEDUR E active Not Available Not Available No t Available ondansetr on HCl 8 mg tablet TAKE 1 TABLET BY MOUTH 2 HOURS BEFORE PROCEDUR E active Not Available Not Available No t Available meloxicam 15 mg tablet 01/04 completed Not Available Not Available Not Available prednison e 20 mg tablet TAKE 2 TABLETS BY MOUTH DAILY FOR 5 DAYS 01/04 completed Not Available Not Available Not Available propranol ol ER 60 mg capsule,2 4 hr,extend ed release 01/04 completed Not Available Not Available Not Available Diflucan 150 mg tablet Take 1 tablet every 72 hours by oral route. 2023 active Not Available Not Available Not Avai lable sulfameth oxazole 800 mg-trimet hoprim 160 mg tablet TAKE 1 TABLET BY MOUTH TWICE DAILY FOR 7 DAYS 01/04 completed Not Available Not Available Not Available ondansetr on 8 mg disintegr ating tablet DISSOLVE 1 TABLET ON THE TONGUE 2 HOURS BEFORE PROCEDUR E active Not Available Not Available No t Available nystatin- triamcino lone 100,000 unit/gram -0.1 % topical ointment APPLY TOPICALL Y TO THE AFFECTED AREA TWICE DAILY NEEDED 03/24 completed Not Available Not Available Not Available Celebrex 200 mg capsule take 1 the night before procedur e and 2 the morning of the procedur e 01/05 completed Not Available Not Available Not Available oxycodone -acetamin ophen 5 mg-325 mg tablet TAKE 2 TABLETS BY MOUTH 2 HOURS BEFORE PROCEDUR E active Not Available Not Available No t Available alprazola m 0.5 mg tablet TAKE 1 TABLET BY MOUTH 2 HOURS BEFORE PROCEDUR E active Not Available Not Available No t Available Metrogel Vaginal 0.75 % (37.5 mg/5 gram) insert 1 applicat orful (37.5MG) by vaginal route every day at bedtime 01/21 completed Prescrib ed Elsewher e: No [facility] odify By: holli reed DateTime : 11/28/19 12 11:20:20 AM Not Available Not Available Not Available omeprazol e 10 mg capsule,d elayed release take 2 capsule by oral route every day before a meal 01/21 completed Prescrib ed Elsewher e: Yes Loca tion: [facility] odify By: holli reed DateTime : 04/21/20 11 03:32:44 PM Not Available Not Available Not Available lorazepam 0.5 mg tablet TK ONE T PO BID PRN 08/02 completed Not Available Not Available Not Available rizatript an 10 mg disintegr ating tablet 01/04 completed Not Available Not Available Not Available nortripty line 10 mg capsule TAKE 1 TO 2 CAPSULES BY MOUTH AT BEDTIME DIRECTED 01/04 completed Not Available Not Available Not Available buspirone 10 mg tablet 03/24 completed Not Available Not Available Not Available propranol ol ER 80 mg capsule,2 4 hr,extend ed release 03/24 completed Not Available Not Available Not Available hydroxyzi ne HCl 25 mg tablet active Not Available Not Available No t Available propranol ol ER 120 mg capsule,2 4 hr,extend ed release active Not Available Not Available Not Available diazepam 10 mg tablet TK 1 T PO 1 HOUR B PROCEDUR E 08/02 completed Not Available Not Available Not Available albuterol sulfate HFA 90 mcg/actua tion aerosol inhaler INHALE 1 TO 2 PUFFS INTO THE LUNGS EVERY 4 HOURS NEEDED active Not Available Not Available No t Available doxycycli ne hyclate 100 mg tablet Take 1 tablet twice a day by oral route for 7 days. 2023 active Not Available Not Available Not Avai lable Topamax 15 mg sprinkle capsule take 1 capsule by oral route 2 times every day in the morning and evening 01/21 completed Prescrib ed Elsewher e: Yes Loca tion: [facility] odify By: holli reed DateTime : 04/21/20 11 03:32:44 PM Not Available Not Available Not Available clindamyc in 1 % lotion APPLY A THIN LAYER TO THE AFFECTED AREA(S) BY TOPICAL ROUTE 2 TIMES PER DAY for 7 days 2023 active Not Available Not Available Not Avai lable Premarin 0.625 mg/gram vaginal cream Apply topicall y to skin of vaginal opening nightly as indicate d. 01/04 completed Not Available Not Available Not Available chlorhexi dine gluconate 0.12 % mouthwash DIRECTED 01/04 completed Not Available Not Available Not Available Mirena 2019 active mirena bebo on 01/05/2025 Not Available Not Available Not Available One Daily 27 mg iron-800 mcg tablet take 1 tablet by oral route every day 12/10 completed Prescrib ed Elsewher e: Yes [facility] By: didi galindo DateTime : 01/29/20 08:30:00 AM Not Available Not Available Not Available Vitals Date Recorded Body height Body mass index (BMI) Body weight Systolic And Diastolic Provider Name and Address Organization Details Last Updated DateTime 08/15/2021 152.4 cm 34 kg/m2 42110.07 g 136/90 mm[Hg] Asya [facility] 08/15/2021 15:53:24 Date Recorded Body height Body mass index (BMI) Body weight Systolic And Diastolic Provider Name and Address Organization Details Last Updated DateTime 08/22/2021 152.4 cm 33.9 kg/m2 02759.64 g 138/82 mm[Hg] Asya [facility] 08/22/2021 11:15:13 Date Recorded Systolic And Diastolic Provider Name and Address Organization Details Last Updated DateTime 2021 122/74 mm[Hg] Trista Duenas [facility] [address], [place], [address] 2021 13:20:25 Date Recorded Body height Body mass index (BMI) Body weight Provider Name and Address Organization Details Last Updated DateTime 2021 152.4 cm 34 kg/m2 77913.07 g Asya Luther [facility] 2021 09:47:47 Date Recorded Systolic And Diastolic Provider Name and Address Organization Details Last Updated DateTime 01/04/2023 122/80 mm[Hg] Trista Duenas [facility] [address], [place], [address], [facility] 01/04/2023 16:10:47 Date Recorded Body height Body mass index (BMI) Body weight Provider Name and Address Organization Details Last Updated DateTime 01/04/2023 152.4 cm 32.8 kg/m2 35574.52 g Gabby Tran [facility] 01/04/2023 15:52:27 Date Recorded Body height Body mass index (BMI) Body weight Systolic And Diastolic Provider Name and Address Organization Details Last Updated DateTime 03/24/2024 152.4 cm 34 kg/m2 05529.07 g 127/83 mm[Hg] Jany Valladares [facility] 03/24/2024 09:29:50 Social History Question Answer Notes LastModified by Organizat ion Details LastModified Time Tobacco Smoking Status Former Smoker Gabby Marc montenegro, [facility] 01/04/2023 15:52:44 Do You Have An Advance Directive? No Information not available 09/23/2020 How Many Years Have You Consumed Alcohol? 15 Information not available 09/24/2020 Are You Blind Or Do You Have Difficulty Seeing? No Information not available 09/23/2020 What Is Your Level Of Caffeine Consumption? Occasional Information not available 09/24/2020 How Much Tobacco Do You Chew? None Information not available 09/24/2020 In The 14 Days Before Symptom Onset, Have You Had Close Contact With A Laboratory-confir med COVID-19 While That Case Was Ill? No Information not available 09/23/2020 In The 14 Days Before Symptom Onset, Have You Had Close Contact With A Person Who Is Under Investigation For COVID-19 While That Person Was Ill? No Information not available 09/23/2020 Have You Been To An Area Known To Be High Risk For COVID-19? No Information not available 09/23/2020 Are You Deaf Or Do You Have Serious Difficulty Hearing? No Information not available 09/23/2020 What Type Of Diet Are You Following? REGULAR Information not available 09/23/2020 What Is The Highest Grade Or Level Of School You Have Completed Or The Highest Degree You Have Received? [id number] Information not available 09/23/2020 What Was The Date Of Your Most Recent Tobacco Screening? 01/06/2020 Information not available 01/04/2023 Do You Use Protection During Sex? No Information not available 09/24/2020 Do You Use Your Seat Belt Or Car Seat Routinely? Yes Information not available 09/24/2020 Do You Have Smoke And Carbon Monoxide Detectors In Your Home? Yes Information not available 09/24/2020 How Much Tobacco Do You Smoke? No [email or web address] Information not available 01/06/2020 Do You Use Sunscreen Routinely? Yes Information not available 01/04/2023 Have You Used IV Drugs? No Information not available 09/23/2020 Do You Have Difficulty Walking Or Climbing Stairs? No Information not available 01/04/2023 Sex: Unknown Functional Status Question Answer Note LastModified by Organizat ion Details LastModified Time Do you use any illicit or recreational drugs? No Information not available 09/23/2020 What is your level of alcohol consumption? Occasional [email or web address] Information not available 01/06/2020 Do you or have you ever used smokeless tobacco? Never used smokeless tobacco Information not available 01/04/2023 Are you able to walk independently without assistance or assistive devices? [email or web address] Information not available 09/23/2020 Are you able to care for yourself independently? 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 No Information not available 01/04/2023 Do you or have you ever used e-cigarettes or vape? Never used electronic cigarettes Information not available 01/04/2023 What is your exercise level? Moderate Information not available 09/24/2020 Mental Status Question Answer Note LastModified by Organization D etails LastModified Time Do you feel stressed (tense, restless, nervous, or anxious, or unable to sleep at night)? [id number] Information not available 09/23/2020 Family History Relationship Description Onset Age of this Age Resolved Age Notes LastModified by Organization Details LastModified Time Maternal Grandfather Disorder of coronary artery [email or web address] Not available 2023 09:04:07 Paternal Grandmother Disorder of coronary artery Not available 2023 09:04:07 Father Hypertensive disorder [email or web address] Not available 2019 11:29:25 Paternal Grandfather Diabetes mellitus [email or web address] Not available 2019 11:29:34 Medical History Condition Response Allergies (Food, seasonal, environmental ) N Other N Breast Cancer N Drug/Latex Allergies/Reactions N Blood Transfusion N Dermatologic Disorders N Lung Disease N Defects or Inherited Disease N Breast Problem N Gestational Diabetes N Hematologic disorders N Anesthesia Complications N History of STI Y Deep Vein Thrombosis N Polycystic ovary syndrome N Anxiety Disorder Y Autoimmune disease N Arthritis N Infertility N Polyps N Acid Reflux (GERD) N History of abnormal pap Y Cancer N Stroke N Varicosities N Neurologic/Epilepsy N Endometriosis N High Cholesterol N Headaches N Fibromyalgia N Kidney Disease N Heart Problems Y Kidney or Bladder Problems N Thyroid Problems N GI Problems N Eating Disorder N Anemia N Art (IVF or FET) N Psychiatric Illness N Ovarian Cancer N Diabetes N Pulmonary (TB, Asthma) N Hepatitis/Liver Disease N No Past Medical History N Eczema N Urinary Tract Infection N Abuse/Domestic Violence N Asthma Y Trauma/Violence N Depression/ depression N Heart Disease N Pre-Eclampsia N Hypertension N Osteoporosis N Thrombophilias N Gynecological History Statement/Question Response Abnormal Pap Yes Date of Last Mammogram Date of LMP 05/07/2008 On BCP's at Conception? N N STIs/STDs Y HPV Vaccine N Colposcopy 05/04/2016 Current Control Method IUD Date of Last Colonoscopy Sexually Active? Y IUD Menses Monthly N Date of DEXA bone scan Age of first menstrual cycle 17 Date of Last Pap Smear 03/24/2024 Sexual Problems? N Desired Control Method IUD LMP Unknown N Obstetrics History GPAL:G 0 P 0 0 0 0 Type Value Living 0 Total 0 Past Encounters Encounter ID Performer Location Encounter Start Date Encounter Closed Date Diagnosis/Indication Diagnosis SNOMED-CT Code Diagnosis ICD10 Code Diagnosis IMO Codes Diagnosis Note [id number] Trista Duenas [facility] [address] [address] 08/21/2019 09:27:35 08/21/2019 16:55:35 Gynecologic examination [id number] Z01.419 Pap/HPV updated STD updated CBE done See A/P Take Calcium with Vitamin D 1200mg daily if not receiving in daily diet. It is strongly advised to have an annual flu shot and up can obtain at most pharmacies . If you have not had a TDap shot in the last 10 years you should obtain one as well. Discussed with patient & provided with informatio n regarding Gardisil vaccine to prevent the 4 strains for HPV that cause cervical cancer if under age 26. Encourage safe sexual practices, to use condoms and limit partners if not already in a monogamous relationsh ip. Do monthly self breast exams. Have mammogram yearly or every other year depending on family history. BRCA testing is now available for patients with strong genetic history of female cancer. If interested contact the office. Engage in daily exercise of low impact aerobic exercise 45-60 minutes 4-5 times weekly. Avoid tobacco and illicit drugs as well as using moderation with alcohol intake less than 1-2 8 oz beverages daily. This lifestyle behavior pattern will lead to less health conditions and longer life span. If BMI greater than 25 weight watchers or dietary consult advised. Patient received above instructio ns, and questions have been answered. If you have any questions please call or respond to this email. Patient was made aware of the patient portal and may obtain a paper copy of today's plan if desired. A/P: Mirena IUD due out 02/06/2020 Unable to detect strings on exam today; Hx of leep where strings cut short; Last TVUS 04/[address] and no issues since this time. She understand s she will be contacted by medical microbiologist for appt Hysterosco py removal/re insertion of Mirena same day sometime in 01/2020 as she does want another mirena IUD. [id number] LILY Navas[facility] [address] [address] 12/31/2019 10:03:38 12/31/2019 13:09:46 Contraception care management [id number] Z30.9 Presented for Mirena IUD removal/re insertion but unable to visualize or fish IUD strings from cervical Os. We agreed to updated TVUS for placement check & then will send message requesting patient be scheduled for Hysterosco pic removal/re insertion of this device. She agrees. Time spent in visit is a total of 15 mins with at least 50% of visit consisting of counseling and review of plan of care. Malpositio n of intrauterine contraceptive device [id number] T83.32XA [id number] [facility] [address] [address] 01/06/2020 08:23:10 01/06/2020 10:26:55 [id number] Rojelio Mike MD [facility] [address],[place] [address] 01/06/2020 10:10:22 01/06/2020 15:23:39 Mechanical complication of intrauterine contraceptive device [id number] T83.39XA pt needs a IUD replacemen t, IUD unable to be removed in the office Rojelio Mike MD [facility] [address] [address] 01/22/2020 09:00:29 01/22/2020 09:02:06 [id number] Rojelio Mike MD [facility] [address],[place] [address] 01/29/2020 09:36:44 01/29/2020 10:37:39 Contraception care management 847529140 Z30.9 this patient is a 34-year-ol d female presents for follow-up after IUD insertion. She has no complaints . She is tolerating the IUD well. She had hysterosco pic IUD removal as well. That she is recovering normally from. [id number] Trista Duenas [facility] [address] [address] 08/02/2020 12:28:17 08/02/2020 13:55:13 Vaginitis 12471893 N76.0 Today we agreed to send vag cx's to r/o infection. We also may need to consider hypoestrog enic effects from having continuous progestero ne only methods of BC which for some people can play a role in these sx's. If cx's are neg we agreed to trial of premarin cream nightly x 2wks then twice a wk for 3mos along with VCG moisturizi ng daily and with SA. VCG sheet reviewed & given for additional review at home to change products. We will call her with results. Use mycolog ointment sparingly. does not appear tohave contraindi cation to use of vag estrogen. Time spent in visit is a total of 26 mins with at least 50% of visit consisting of counseling and review of plan of care. Additional precaution maria l measures were taken to minimize potential exposure to the Covid-19 virus during this patient s visit, including available hand registered art therapist upon arrive, temperatur e check and being asked a series of screening questions. All staff wore face coverings during this encounter, as well as provided additional cleaning and sanitizing of all surfaces, including countertop s, pens, chairs, door handles, light switches, etc, prior to and following the patient s visit. [id number] Trista Duenas , [facility] [address] [address] 09/24/2020 09:34:27 09/24/2020 10:39:34 Gynecologic examination [id number] Z01.419 Take Calcium with Vitamin D 1200mg daily if not receiving in daily diet. It is strongly advised to have an annual flu shot and up can obtain at most pharmacies . If you have not had a TDap shot in the last 10 years you should obtain one as well. Discussed with patient & provided with informatio n regarding Gardisil vaccine to prevent the 4 strains for HPV that cause cervical cancer if under age 26. Encourage safe sexual practices, to use condoms and limit partners if not already in a monogamous relationsh ip. Do monthly self breast exams. Have mammogram yearly or every other year depending on family history. BRCA testing is now available for patients with strong genetic history of female cancer. If interested contact the office. Engage in daily exercise of low impact aerobic exercise 45-60 minutes 4-5 times weekly. Avoid tobacco and illicit drugs as well as using moderation with alcohol intake less than 1-2 8 oz beverages daily. This lifestyle behavior pattern will lead to less health conditions and longer life span. If BMI greater than 25 weight watchers or dietary consult advised. Patient received above instructio ns, and questions have been answered. If you have any questions please call or respond to this email. Patient was made aware of the patient portal and may obtain a paper copy of today's plan if desired. Pap/hpv sent Hx of LEEP Declined need std screening No issues or concerns today Using coconut oil for vag moisturizi ng. Decided against premarin for vag dryness. Will call if wants to try this therapy. [id number] Bernice RobersonMj Padillae [facility] [address],[place] [address] 11/05/2020 15:59:23 11/11/2020 20:54:00 Atypical squamous cells of undetermined significance on cervical Papanicolaou smear [id number] R87.610 Human kevin llomavirus deoxyribonucleic acid detected, high risk on cervical specimen [id number] R87.810 [id number] Trista Duenas [facility] [address],[place] [address] 11/05/2020 15:59:08 11/09/2020 20:59:32 [id number] Geno Cannon [facility] [address],[place] [address] 08/15/2021 15:38:07 08/15/2021 18:15:47 Folliculitis [id number] L73.9 Lesion of vulva [id number] N90.89 Multiple tender and reddned bumps around the vulva. No open areas of drainage noted.No current fevers or flu like symptoms.S he shaves this area frequently and has been applying band aids over the bumps.We discussed possible reoccurrin g foliculiti s related to shaving the vulva.She should not shave the area, vulvar care guidelines discussed. Can use warm compress to the area.Juma nt has no medication allergiesW ill start on Bactrim BID x 5 days as there is a concern for infection. Patient to RTC in one week for vulvar exam. Will reassess in one week and determine any further treatment needed. Note: patient is on meloxicam PRN for joint pain. Possible increased potassium level with bactrim and meloxicam. I discussed this with patient. She is not currently taking meloxicam and uses PRN. Okay to use bactrim as patient feels like she does not need meloxicam for the next week. Time spent with patient was 30 minutes. [id number] Geno Cannon [facility] [address],[place] [address] 08/22/2021 11:00:45 08/22/2021 13:59:46 Lesion of vulva [id number] N90.89 Vulvar exam improved since antibiotic use.Irrita tion/ redness goneLesion s have gone away/decre ased in size. A few remain but are not painful and are significan tly smaller.Poncho roberson no longer has symptoms!S he request routine blood work to be ordered today.We discussed vulvar care guidelines to help prevent recurrent foliculiti s (no shaving). Discussed laser hair removal as an option in the future.Rx for antibiotic cream to put on remaining lesions twice daily until healed.She should call the office if symptoms occur again. We discussed vulvar home care attendant referral since this has been a chronic issues for her, phone number given to patient to schedule this appointmen t. Time spent with the patient was 25 minutes Sexually t ransmitted infectious disease [id number] Trista Duenas [facility] [address],[place] [address] 2021 09:14:35 2021 16:39:16 Gynecologic examination [id number] Z01.419 Z11.51 Take Calcium with Vitamin D 1200mg daily if not receiving in daily diet. It is strongly advised to have an annual flu shot and up can obtain at most pharmacies . If you have not had a TDap shot in the last 10 years you should obtain one as well. Discussed with patient & provided with informatio n regarding Gardisil vaccine to prevent the 4 strains for HPV that cause cervical cancer if under age 26. Encourage safe sexual practices, to use condoms and limit partners if not already in a monogamous relationsh ip. Do monthly self breast exams. Have mammogram yearly or every other year depending on family history. BRCA testing is now available for patients with strong genetic history of female cancer. If interested contact the office. Engage in daily exercise of low impact aerobic exercise 45-60 minutes 4-5 times weekly. Avoid tobacco and illicit drugs as well as using moderation with alcohol intake less than 1-2 8 oz beverages daily. This lifestyle behavior pattern will lead to less health conditions and longer life span. If BMI greater than 25 weight watchers or dietary consult advised. Patient received above instructio ns, and questions have been answered. If you have any questions please call or respond to this email. Patient was made aware of the patient portal and may obtain a paper copy of today's plan if desired. Pap/hpv sent STD Screen declined Genetic Screen discussed Colon Screen na Dexa Screen na Routine Labs UTD PCPMammo na Dyspareunia [id number] N94 .10 Counseled on medication R/B's, Most common side effects, & use. All questions were answered to patient satisfacti on. Hidradenit is suppurativa [id number] L73.2 VCG's encouraged If needs refill of clindamyci n lotion for preventati ve therapy please le us know. [id number] Trista Duenas , [facility] [address],[facility] [place] [address] 01/04/2023 15:42:12 01/04/2023 16:15:18 Gynecologic examination [id number] Z01.419 Z11.51 Take Calcium with Vitamin D 1200mg daily if not receiving in daily diet. It is strongly advised to have an annual flu shot and up can obtain at most pharmacies . If you have not had a TDap shot in the last 10 years you should obtain one as well. Discussed with patient & provided with informatio n regarding Gardisil vaccine to prevent the 4 strains for HPV that cause cervical cancer if under age 26. Encourage safe sexual practices, to use condoms and limit partners if not already in a monogamous relationsh ip. Do monthly self breast exams. Have mammogram yearly or every other year depending on family history. BRCA testing is now available for patients with strong genetic history of female cancer. If interested contact the office. Engage in daily exercise of low impact aerobic exercise 45-60 minutes 4-5 times weekly. Avoid tobacco and illicit drugs as well as using moderation with alcohol intake less than 1-2 8 oz beverages daily. This lifestyle behavior pattern will lead to less health conditions and longer life span. If BMI greater than 25 weight watchers or dietary consult advised. Patient received above instructio ns, and questions have been answered. If you have any questions please call or respond to this email. Patient was made aware of the patient portal and may obtain a paper copy of today's plan if desired. Pap/hpv sentSTD Screen declinedGe netic Screen discussedC olon Screen naDexa Screen naRoutine Labs UTD PCPMammo na Vaginitis [id number] N76.0 rf to use prn but doing really well since we last met for this issue. [id number] LILY Quintanilla [place] [address],[place] [address] 03/24/2024 09:03:44 03/24/2024 11:22:08 Gynecologic examination [id number] Z01.419 WWEBC - Mirena IUD, inserted 01/06/2020pa p updateddec lined STI screenmamm ogram at 40 unless otherwise indicated It is strongly advised to have an annual flu shot and up can obtain at most pharmacies . If you have not had a TDap shot in the last 10 years you should obtain one as well.Discu ssed with patient & provided with informatio n regarding HPV vaccine if applicable . Encourage safe sexual practices, to use condoms and limit partners if not already in a monogamous relationsh ip. Do monthly self breast exams. BRCA testing is now available for patients with strong genetic history of female cancer. If interested contact the office. Engage in regular exercise. Avoid tobacco and illicit drugs This lifestyle behavior pattern will lead to less health conditions and longer life span. If BMI greater than 25 dietary consult advised. Patient received above instructio ns, and questions have been answered. Contracept ion care management [id number] Z30.9 Hidradenit is suppurativa [id number] L73.2 rx doxycyclin e courseclin damycin lotionrx sent, r/b/a reviewedvu lvar care guidelines discussed Health Concerns Section Related Observation LastModified by Organization Detai ls LastModified Time None Recorded Concern Status LastModified by Organization Details LastModified Time None Recorded Advance Directives Directive N: Payers Insurance Date Sequence Insurance Name Policy Number Policy Gar Covered Member ID Gar Member ID Guarantor Name 12/15/2024 1 [facility] [id number] Carter Ortiz [id number] Elvia Ortiz Notes Date Note Type Note Provider Name and Address Organization Details Recorded Time 08/16/19 22 text/ht ml Patient here for multiple bumps around the vulva. This has been happening on and off x 1 year. Recently has become worse. Bumps will come and go. Painful to touch. Associated with shaving. LILY Quintanilla [address], [place], [address], [facility] 08/15/2021 18:01:12 08/23/19 22 text/ht ml F/u vulvar exam. She has been doing significantly better since antibiotic treatment! Less irritation/pain and lesions have decreased in size. LILY Quintanilla [address], [place], [address], [facility] 08/22/2021 13:43:54 10/27/19 22 text/ht ml Annual GYNReported by PatientGenitourinary symptomsFor menstrual cycle, patient reportsnormal menses. For urinary symptoms, patient reportsno hematuriaandno incontinence. For vulva, patient reportsno genital lesion. For vagina, patient reportsnormal vaginal discharge(vaginal irritation with intercourse around opening of vagina.boils creases of groin where underwear line hits skin.).Breast symptomsFor breast, patient reportsno breast pain,no breast lump, andno nipple discharge.ContraceptionFor current contraception, patient reportssatisfied with current contraception,oral contraceptives, andintrauterine device (iud).Endocrine symptomsFor sexual complaints, patient reportsno sexual complaints,no pain during intercourse, andnormal libido. For menopausal symptoms, patient reportsno menopausal symptomsandnormal vaginal lubrication.Psychological symptomsFor psychological symptoms, patient reportsno depression,no anxiety, andno pmdd.Preventative measuresFor preventive measures, patient reportsencourage self breast examination,encourage regular exercise,encourage no tobacco use,encourage regular mammograms starting age 40, andhistory of abnormal pap smear/cervical dysplasia. Trista Duenas, LILY- [address], [place], [address], [facility] 2021 13:29:19 01/05/20 23 text/ht ml Annual GYNReported by PatientHistoryFor history, patient reportsno gynecologic complaints.Genitourinary symptomsFor menstrual cycle, patient reportsnormal menses (light or no menses some months with iud mirena). For urinary symptoms, patient reportsno hematuriaandno incontinence. For vulva, patient reportsno genital lesion. For vagina, patient reportsnormal vaginal discharge.Breast symptomsFor breast, patient reportsno breast pain,no breast lump, andno nipple discharge.ContraceptionFor current contraception, patient reportssatisfied with current contraceptionandintrauterine device (iud).Endocrine symptomsFor sexual complaints, patient reportsno sexual complaints,no pain during intercourse, andnormal libido. For menopausal symptoms, patient reportsno menopausal symptomsandnormal vaginal lubrication.Psychological symptomsFor psychological symptoms, patient reportsno depression,no anxiety, andno pmdd.Preventative measuresFor preventive measures, patient reportsencourage self breast examination,encourage regular exercise,encourage no tobacco use,encourage regular mammograms starting age 40,followed with yearly pap smears, andhistory of abnormal pap smear/cervical dysplasia. Trista Duenas, [facility] [address], [place], [address], [facility] 01/04/2023 16:14:33 03/24/20 24 text/ht ml Annual GYNReported by PatientGenitourinary symptomsFor menstrual cycle, patient reportsnormal menses. For urinary symptoms, patient reportsno hematuriaandno incontinence. For vulva, patient reportsno genital lesion. For vagina, patient reportsnormal vaginal discharge.Breast symptomsFor breast, patient reportsno breast pain,no breast lump, andno nipple discharge.ContraceptionFor current contraception, patient reportssatisfied with current contraception(mirena iud, inserted 01/06/2020).Endocrine symptomsFor sexual complaints, patient reportsno sexual complaints,no pain during intercourse, andnormal libido. For menopausal symptoms, patient reportsno menopausal symptomsandnormal vaginal lubrication.Psychological symptomsFor psychological symptoms, patient reportsno depression,no anxiety, andno pmdd.Preventative measuresFor preventive measures, patient reportsencourage self breast examination,encourage regular exercise,encourage no tobacco use, andencourage regular mammograms starting age 40.38yo [id number] LEEP 2005 and 2017last pap 12/2022 : nilm, HPV (-)BC - Mirena IUD, inserted 01/06/2020 has HS, will get vulvar boils occasionally, uses clindamycin lotion PRN and oral antibiotic course with flareshas two boils currently on right side of vulva LILY Quintanilla [address], [place], [address], [facility] 03/24/2024 11:21:22 OBGyn Episode No OBEpisode recorded.
--- OUTSIDE RECORDS SUMMARY | 2025-04-01 06:41 | XMS_ITS | Clinical Summary ---
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[employer] Gender Identity Not on file Sexual Orientation Not on file Plan of Treatment Health Maintenance Due Date Last Done Comments Cervical Cancer Screening Pa p Smear (Age 30 to 64) Every 3 Years 1987 Annual Physical 10/25/1990 Hepatitis C 10/25/2005 DTaP, Tdap and Td Vaccines ( 1 - Tdap) 10/25/2006 Hepatitis B Vaccines (1 of 3 - 19+ 3-dose series) 10/25/2006 HPV Vaccines (1 - 3-dose SCD M series) 10/25/2014 Cervical Cancer Screening Pa p with HPV Testing (Age 30 to 64) Every 5 Years 10/25/2017 Cervical Cancer Screening with HPV 10/25/2017 COVID-19 Vaccine (2024-2 6 season) 2025 Influenza Adult (#1) 2025 Hepatitis A Vaccines Aged Out No long er eligible based on patient's age to complete this topic Meningococcal B Vaccine Aged Out No l onger eligible based on patient's age to complete this topic Meningococcal Vaccine Aged Out No bruce alexandra eligible based on patient's age to complete this topic Pneumococcal Vaccine: Pediat rics (0 to 5 Years) and At-Risk Patients (6 to 49 Years) Aged Out No longer eligible b ased on patient's age to complete this topic RSV Immunizations Under 20 Months Aged Out No longer eligible based on patient's age to complete this topic Insurance LAVELLE GARCIA
== END 2025-04-01 06:38 | disposition home or self-care (01) ==
PROVIDERS: PCP Nurse Practitioner; Visit Provider Plastic Surgery
DX: M67.431 Ganglion, right wrist (principal); S63.591A Other specified sprain of right wrist, initial encounter; X58.XXXA Exposure to other specified factors, initial encounter; M94.231 Chondromalacia, right wrist
CPT/HCPCS: 73223; A9577